=== PATIENT | male | born 1960 | race Caucasian/White ===

== ENCOUNTER 2016-06-25 10:46 | Emergency (ER) | payer OTHER, SELFPAY ==
[2016-06-25 10:57] VITALS: BP 161/97; PULSE 62; RESP 18; TEMP 97.7; O2SAT 99
[2016-06-25] MEDS ORDERED: Tetanus/Diphtheria Toxoids 0.5 ml Syringe IM ONE ×2 (11:20→11:25)
--- NOTE | 2016-06-25 11:25 | C.PDOC ---
History Of Present Illness 55 yo male come in for evaluation of Right foot puncture wound sustained yesterday. Pt admits, clean wound yesterday. Otherwise, pt denies fever, chills , foot swelling, redness or wound discharge, denies deformity, weakness, sensory or vascular deficits to Right foot. Ambulate to ED for evaluation, not in any apparent distress. Time Seen by Provider: 06/25/16 11:13 Chief Complaint (Nursing): Lower Extremity Problem/Injury History Per: Patient Onset/Duration Of Symptoms: Sudden Onset Past Medical History Reviewed: Historical Data, Nursing Documentation, Vital Signs Vital Signs: Last Vital Signs Temp 97.7 F 06/25/16 10:56 Pulse 62 06/25/16 10:56 Resp 18 06/25/16 10:56 BP 161/97 H 06/25/16 10:56 Pulse Ox 99 06/25/16 10:56 - Medical History PMH: Benign Prostatic Hyperplasia, HTN, Hyperlipidemia Family History: States: No Known Family Hx - Social History Hx Tobacco Use: No Hx Alcohol Use: No Hx Substance Use: No - Immunization History Hx Tetanus Toxoid Vaccination: No Hx Influenza Vaccination: No Hx Pneumococcal Vaccination: No Review Of Systems Except As Marked, All Systems Reviewed And Found Negative. Constitutional: Negative for: Fever, Chills Musculoskeletal: Positive for: Foot Pain Skin: Positive for: Lesions Neurological: Negative for: Weakness, Numbness Physical Exam - Physical Exam Appears: Well, Non-toxic, No Acute Distress Skin: Normal Color, Warm, Other ((+) Right foot plantar aspect puncture wound overlying 5th MTB, No edema, no erythema, no cellulitis, no discharge.) Extremity: Normal ROM, No Tenderness, Capillary Refill (less than 2sec to Right foot), No Deformity, No Swelling Neurological/Psych: Oriented x3, Normal Speech, Normal Motor, Normal Sensation, Normal Reflexes ED Course And Treatment O2 Sat by Pulse Oximetry: 99 Pulse Ox Interpretation: Normal Progress Note: On re-eavluation, pt is afebrile, hemodynamicaly stable. non- toxic. Ambulatory in ED with stable gait. Right foot: exam c/w puncture wound , no evidenc oef fB, no cellulitis. neuorlogicaly intact. tetanus, abx given. Pt advised. ref. to f/u with PM DIn 2-3 days for re-eval. return if any new changes. Disposition Counseled Patient/Family Regarding: Diagnosis, Need For Followup, Rx Given - Disposition Referrals: [facility] [Outside] Disposition: HOME/ ROUTINE Disposition Time: 11:25 Condition: STABLE Additional Instructions: Warm salty water foot soaks daily for 5 minutes Take medication as prescribed Follow up with PMD in 2 days for re-evaluation. Return to ED if nay worsening or new changes., Prescriptions: Ciprofloxacin [Cipro] 1 tab PO BID #14 tab Instructions: Puncture Wound (ED) Print Language: YI - Clinical Impression Clinical Impression: Puncture wound
== END 2016-06-25 11:37 | disposition home or self-care (01) ==
LOC: C.ER 10:46
DX: S91.331A Puncture wound without foreign body, right foot, initial encounter (principal); W45.0XXA Nail entering through skin, initial encounter; Y93.9 Activity, unspecified; Y92.9 Unspecified place or not applicable